=== PATIENT | male | born 1950 | race Caucasian/White ===

== ENCOUNTER 2019-04-29 16:10 | Observation (INO) ==
[~2019-04-29 16:10] MED LIST: ANTIVERT TAB 25 MG PO ONE
[2019-04-29] MEDS ORDERED: NS 1000 ML ONE (21:00)
[2019-04-29] MEDS ORDERED: LEVAQUIN PREMIX IV 500 MG IV ONE (21:30)
[2019-04-29] MEDS ORDERED: LEVAQUIN PREMIX IV 500 MG ONE (21:30)
[2019-04-29] MEDS ORDERED: GLUCOPHAGE PO ONE (22:00)
[2019-04-29] MEDS ORDERED: COLACE CAP 100 MG PO ONE (22:00)
[2019-04-29] MEDS ORDERED: ANTIVERT TAB 25 MG PO ONE (22:00)
[2019-04-29] MEDS ORDERED: GLUCOTROL PO ONE (22:00)
[2019-04-29] MEDS ORDERED: ELIQUIS PO ONE (22:00)
[2019-04-29] MEDS ORDERED: LIPITOR TAB 40 MG PO ONE (22:00)
[2019-04-29] MEDS ORDERED: ZANTAC PO ONE (22:00)
[2019-04-29] MEDS ORDERED: HumuLIN R SUBCUT ONE (22:00)
[2019-04-30] MEDS ORDERED: ANTIVERT TAB 25 MG PO ONE ×4 (04:00→21:50)
[2019-04-30] MEDS ORDERED: SYNTHROID 75 mcg TAB PO ONE (09:00)
[2019-04-30] MEDS ORDERED: NORVASC TAB 10 MG PO ONE (09:00)
[2019-04-30] MEDS ORDERED: WELLBUTRIN IR (PLAIN) PO ONE ×2 (09:00→21:40)
[2019-04-30] MEDS ORDERED: ELIQUIS PO ONE ×2 (09:00→21:50)
[2019-04-30] MEDS ORDERED: GLUCOPHAGE PO ONE ×2 (09:00→21:50)
[2019-04-30] MEDS ORDERED: COZAAR PO ONE (09:00)
[2019-04-30] MEDS ORDERED: PERCOCET TAB 5/325 MG PO ONE ×2 (09:00→21:40)
[2019-04-30] MEDS ORDERED: NORVASC TAB 5 MG PO ONE (09:00)
[2019-04-30] MEDS ORDERED: ZANTAC PO ONE ×2 (09:00→21:50)
[2019-04-30] MEDS ORDERED: ASPIRIN EC 81 MG PO ONE (09:00)
[2019-04-30] MEDS ORDERED: TOPROL XL PO ONE (09:00)
[2019-04-30] MEDS ORDERED: SYNTHROID 88 mcg TAB PO ONE (09:00)
[2019-04-30] MEDS ORDERED: HumuLIN R SUBCUT ONE (11:30)
[2019-04-30] MEDS ORDERED: ZOLOFT ONE (13:00)
[2019-04-30] MEDS ORDERED: ZOCOR TAB 40 MG PO ONE (21:00)
[2019-04-30] MEDS ORDERED: LOPRESSOR TAB 50 MG PO ONE (21:40)
[2019-04-30] MEDS ORDERED: LEVAQUIN PREMIX IV 500 MG IV ONE (21:40)
[2019-04-30] MEDS ORDERED: COLACE CAP 100 MG PO ONE (21:50)
[2019-04-30] MEDS ORDERED: LIPITOR TAB 40 MG PO ONE (21:50)
[2019-04-30] MEDS ORDERED: GLUCOTROL PO ONE (21:50)
[2019-04-30 22:20] VITALS: BP 165/84
[2019-05-01 06:09] LABS: BASOPHILS # (AUTO) 0.1 X10^3/uL (0.0-0.1); BASOPHILS % (AUTO) 0.5 % (0.2-1.0); EOSINOPHILS # (AUTO) 0.1 x10^3/uL (0.0-0.2); EOSINOPHILS % (AUTO) 0.6 % (0.9-2.9); HEMATOCRIT 37.1 % (42.0-54.0); HEMOGLOBIN 12.8 g/dL (13.5-18.0); LYMPHOCYTES # (AUTO) 1.8 X10^3/uL (1.3-2.9); LYMPHOCYTES % (AUTO) 13.8 % (21.0-51.0); MEAN CORPUSCULAR HEMOGLOBIN 31.8 pg (27.0-34.0); MEAN CORPUSCULAR HGB CONC 34.5 g/dL (33.0-35.0); MEAN CORPUSCULAR VOLUME 92.1 fL (80.0-100.0); MEAN PLATELET VOLUME 9.1 fL (7.4-11.0); MONOCYTES # (AUTO) 0.8 x10^3/uL (0.3-0.8); MONOCYTES % (AUTO) 6.3 % (0.0-13.0); NEUTROPHILS # (AUTO) 10.5 x10^3/uL (2.2-4.8); NEUTROPHILS % (AUTO) 78.8 % (42.0-75.0); PLATELET COUNT 169 X10^3/uL (150.0-450.0); RED BLOOD COUNT 4.03 X10^6/uL (4.7-6.0); RED CELL DISTRIBUTION WIDTH 14.9 % (11.6-16.5); WHITE BLOOD COUNT 13.3 X10^3/uL (3.6-10.0)
[2019-05-01 06:19] LABS: ALANINE AMINOTRANSFERASE 20 Units/L (12-78); ALBUMIN 3.3 g/dL (3.4-5.0); ALKALINE PHOSPHATASE 65 Units/L (46-116); ASPARTATE AMINO TRANSFERASE 31 Units/L (15-37); BLOOD UREA NITROGEN 17 mg/dL (7-18); CALCIUM 8.4 mg/dL (8.5-10.1); CARBON DIOXIDE 26.1 mmol/L (21-32); CHLORIDE 99 mmol/L (98-107); CREATININE 1.42 mg/dL (0.70-1.30); SODIUM 134 mmol/L (136-145); TOTAL PROTEIN 7.9 g/dL (6.4-8.2); eGFR NON BLACK RACES 52 (>60)
[2019-05-01 06:22] LABS: BLOOD UREA NITROGEN 17 mg/dL (7-18); CARBON DIOXIDE 28.2 mmol/L (21-32); CHLORIDE 98 mmol/L (98-107); CREATININE 1.57 mg/dL (0.70-1.30); SODIUM 134 mmol/L (136-145); eGFR NON BLACK RACES 47 (>60)
[2019-05-01 06:23] LABS: ALANINE AMINOTRANSFERASE 31 Units/L (12-78); ALBUMIN 3.9 g/dL (3.4-5.0); ALKALINE PHOSPHATASE 62 Units/L (46-116); ASPARTATE AMINO TRANSFERASE 28 Units/L (15-37); CALCIUM 8.7 mg/dL (8.5-10.1); TOTAL PROTEIN 8.1 g/dL (6.4-8.2)
[2019-05-01 06:24] LABS: HEMATOCRIT 38.4 % (42.0-54.0); HEMOGLOBIN 13.3 g/dL (13.5-18.0); LYMPHOCYTES % (AUTO) 14.5 % (21.0-51.0); MEAN CORPUSCULAR HEMOGLOBIN 31.7 pg (27.0-34.0); MEAN CORPUSCULAR HGB CONC 34.7 g/dL (33.0-35.0); MEAN CORPUSCULAR VOLUME 91.3 fL (80.0-100.0); MEAN PLATELET VOLUME 8.4 fL (7.4-11.0); NEUTROPHILS % (AUTO) 76.1 % (42.0-75.0); PLATELET COUNT 185 X10^3/uL (150.0-450.0); RED CELL DISTRIBUTION WIDTH 14.6 % (11.6-16.5)
[2019-05-01 06:25] LABS: BASOPHILS # (AUTO) 0.1 X10^3/uL (0.0-0.1); EOSINOPHILS # (AUTO) 0.3 x10^3/uL (0.0-0.2); EOSINOPHILS % (AUTO) 2.3 % (0.9-2.9); LYMPHOCYTES # (AUTO) 1.7 X10^3/uL (1.3-2.9); MONOCYTES # (AUTO) 0.7 x10^3/uL (0.3-0.8); MONOCYTES % (AUTO) 6.1 % (0.0-13.0); NEUTROPHILS # (AUTO) 9.2 x10^3/uL (2.2-4.8)
[2019-05-01 06:27] LABS: APPEARANCE,URINE CLOUDY (CLEAR); BILIRUBIN,URINE NEGATIVE (NEGATIVE); BLOOD/HEMOGLOBIN,URINE 3+ (NEGATIVE); COLOR,URINE YELLOW (YELLOW); GLUCOSE, URINE NEGATIVE (NEGATIVE); KETONES,URINE NEGATIVE (NEGATIVE); LEUKOCYTE ESTERASE ,URINE 3+ (NEGATIVE); NITRITES,URINE POSITIVE (NEGATIVE); PROTEIN,URINE 2+ (NEGATIVE); UROBILINOGEN,URINE NORMAL (NORMAL)
[2019-05-01 06:28] LABS: BACTERIA,URINE 3+ /HPF (NEGATIVE); SQUAMOUS EPITHELIAL CELL,UR RARE /HPF (NEGATIVE)
[2019-05-01 06:29] LABS: COLOR,URINE YELLOW (YELLOW)
[2019-05-01 06:30] LABS: APPEARANCE,URINE HAZY (CLEAR); BILIRUBIN,URINE NEGATIVE (NEGATIVE); BLOOD/HEMOGLOBIN,URINE 3+ (NEGATIVE); GLUCOSE, URINE NEGATIVE (NEGATIVE); KETONES,URINE NEGATIVE (NEGATIVE); LEUKOCYTE ESTERASE ,URINE 1+ (NEGATIVE); NITRITES,URINE NEGATIVE (NEGATIVE); PROTEIN,URINE 2+ (NEGATIVE); UROBILINOGEN,URINE NORMAL (NORMAL)
[2019-05-01 06:31] LABS: BACTERIA,URINE TRACE /HPF (NEGATIVE); HYALINE CASTS, URINE RARE /LPF (NEGATIVE); MUCUS,URINE FEW /HPF (NEGATIVE); SQUAMOUS EPITHELIAL CELL,UR FEW /HPF (NEGATIVE)
[2019-05-01 06:33] LABS: WHITE BLOOD COUNT 11.7 X10^3/uL (3.6-10.0)
[2019-05-01 06:34] LABS: BASOPHILS # (AUTO) 0.1 X10^3/uL (0.0-0.1); EOSINOPHILS # (AUTO) 0.1 x10^3/uL (0.0-0.2); EOSINOPHILS % (AUTO) 0.6 % (0.9-2.9); HEMATOCRIT 37.5 % (42.0-54.0); HEMOGLOBIN 12.9 g/dL (13.5-18.0); LYMPHOCYTES # (AUTO) 1.9 X10^3/uL (1.3-2.9); LYMPHOCYTES % (AUTO) 16.4 % (21.0-51.0); MEAN CORPUSCULAR HEMOGLOBIN 31.5 pg (27.0-34.0); MEAN CORPUSCULAR HGB CONC 34.5 g/dL (33.0-35.0); MEAN CORPUSCULAR VOLUME 91.5 fL (80.0-100.0); MEAN PLATELET VOLUME 8.7 fL (7.4-11.0); MONOCYTES # (AUTO) 0.7 x10^3/uL (0.3-0.8); MONOCYTES % (AUTO) 6.1 % (0.0-13.0); NEUTROPHILS # (AUTO) 8.9 x10^3/uL (2.2-4.8); NEUTROPHILS % (AUTO) 75.9 % (42.0-75.0); PLATELET COUNT 161 X10^3/uL (150.0-450.0); RED CELL DISTRIBUTION WIDTH 14.8 % (11.6-16.5)
[2019-05-01] MEDS ORDERED: TYLENOL 325 MG TAB PO PRN (07:25)
[2019-05-01] MEDS ORDERED: WELLBUTRIN IR (PLAIN) PO SCH (09:00)
[2019-05-01] MEDS ORDERED: PERCOCET TAB 5/325 MG PO SCH (09:00)
[2019-05-01] MEDS ORDERED: LEVAQUIN PREMIX IV 500 MG 500 MG/100 ML BAG IV SCH (09:00)
[2019-05-01] MEDS ORDERED: NORVASC TAB 10 MG PO SCH (09:00)
[2019-05-01] MEDS ORDERED: COZAAR PO SCH (09:00)
[2019-05-01] MEDS ORDERED: LOPRESSOR TAB 50 MG PO SCH (09:00)
[2019-05-01] MEDS ORDERED: ANTIVERT TAB 25 MG PO SCH (14:00)
[2019-05-01] MEDS ORDERED: ZOCOR TAB 20 MG PO SCH (21:00)
[2019-05-02] MEDS ORDERED: SYNTHROID 88 mcg TAB PO SCH (07:00)
== END 2019-05-01 11:40 | disposition home or self-care (01) ==
LOC: MED/SURG 16:10 → ER 16:10 → MED/SURG 21:33
PROVIDERS: ADMIT Internal Medicine; ATTEND Internal Medicine
DX: M54.17 Radiculopathy, lumbosacral region; E03.8 Other specified hypothyroidism; R32 Unspecified urinary incontinence; R94.31 Abnormal electrocardiogram [ECG] [EKG]; R29.6 Repeated falls; B96.29 Other Escherichia coli [E. coli] as the cause of diseases classified elsewhere; E78.2 Mixed hyperlipidemia; R41.82 Altered mental status, unspecified; R53.1 Weakness; R55 Syncope and collapse; R42 Dizziness and giddiness; N39.0 Urinary tract infection, site not specified; I10 Essential (primary) hypertension
CPT/HCPCS: 36415; 70450; 80053; 81001; 82140; 84443; 85025; 87086; 87088; 87186; 93005; 96365; 96372; 96374; 97162; 99283; A4222; G0378; J1815; J1956; J7030